=== PATIENT | male | born 1960 | race Caucasian/White ===

== ENCOUNTER 2017-09-12 19:03 | Emergency (ER) | payer MEDICAID ==
[~2017-09-12] VITALS: Ht 180.3 cm; Wt 105.0 kg
[2017-09-12 19:09] VITALS: BP 131/82
== END 2017-09-13 01:00 | disposition left against medical advice (07) ==
LOC: ER 21:09
DX: M25.561 Pain in right knee (principal); Z53.21 Procedure and treatment not carried out due to patient leaving prior to being seen by health care provider

== ENCOUNTER 2017-12-29 07:12 | Emergency (ER) | payer MEDICAID | END 2017-12-29 07:47 | disposition left against medical advice (07) | LOC: ER 07:12 | DX: M79.609 Pain in unspecified limb (principal); Z53.21 Procedure and treatment not carried out due to patient leaving prior to being seen by health care provider ==

== ENCOUNTER 2020-11-06 15:25 | Emergency (ER) | payer MEDICAID ==
[~2020-11-06] VITALS: Ht 175.3 cm; Wt 91.0 kg
[2020-11-06] MEDS ORDERED: ASPIRIN 81MG TABLET PO ONE (17:00)
[2020-11-06 17:51] LABS: BASOPHILS % 0.9 % (0.0-2.0); EOSINOPHILS % 1.4 % (0.0-5.0); HEMATOCRIT. 41.9 % (42.0-52.0); HEMOGLOBIN. 14.3 g/dL (14.0-18.0); LYMPHOCYTES % 21.9 % (20.0-50.0); MEAN CORPUSCULAR HEMOGLOBIN 28.4 pg (28.0-32.0); MEAN CORPUSCULAR VOLUME 83.2 fL (80.0-94.0); MONOCYTES % 8.2 % (2.0-8.0); NEUTROPHILS % 67.6 % (40.0-76.0); PLATELET 320 x1000/uL (130-400); RED BLOOD CELL COUNT 5.03 mill/uL (4.7-6.1); RED CELL DISTRIBUTION WIDTH 14.4 % (11.6-14.6)
[2020-11-06 18:01] LABS: CHLORIDE 112 mEq/L (98-107)
[2020-11-06 18:06] LABS: ETHANOL BLOOD < 10 mg/dL
[2020-11-06 22:10] LABS: *AMPHETAMINES SCREEN URINE PRESUMTIVE POSITIVE (NEGATIVE); *BARBITURATES SCREEN URINE NEGATIVE (NEGATIVE)
[2020-11-06 22:11] LABS: *BENZODIAZEPINES SCREEN URINE NEGATIVE (NEGATIVE); *COCAINE SCREEN URINE NEGATIVE (NEGATIVE); CANNABINOID URINE SCREEN NEGATIVE (NEGATIVE); METHADONE URINE SCREEN NEGATIVE (NEGATIVE); OPIATES URINE SCREEN NEGATIVE (NEGATIVE); PHENCYCLIDINE URINE SCREEN NEGATIVE (NEGATIVE)
[2020-11-06] MEDS ORDERED: IOHEXOL-300 100 ML BOTTLE ONE (22:41)
[2020-11-06] MEDS ORDERED: NICARDIPINE 40MG/200ML PREMIX 200 ML IV PRN (23:30)
[2020-11-06] MEDS ORDERED: ESMOLOL 2500MG PREMIX 250 ML IV ONE ×2 (23:30→23:45)
[2020-11-07] MEDS ORDERED: ESMOLOL 2500MG PREMIX 250 ML IV PRN (02:15)
[2020-11-07 03:00] VITALS: BP 113/66
== END 2020-11-07 03:10 | disposition short-term general hospital (02) ==
LOC: ER 15:25 → CANBEDREQ 11-07 07:05
DX: I71.00 Dissection of unspecified site of aorta (principal); E87.6 Hypokalemia; Z20.822 Contact with and (suspected) exposure to COVID-19; E83.51 Hypocalcemia; R00.0 Tachycardia, unspecified; F15.10 Other stimulant abuse, uncomplicated
CPT/HCPCS: 36415; 71045; 71275; 80053; 80305; 80320; 83880; 84484; 85025; 87426; 93005; 96365; 96368; 99285; J3490; Q9967; Z7610; G0480

== ENCOUNTER 2024-03-18 11:05 | Emergency (ER) | payer MEDICAID ==
[~2024-03-18] VITALS: Ht 180.3 cm; Wt 105.0 kg
[2024-03-18 11:10] VITALS: BP 140/71; PULSE 74; RESP 18; O2SAT 97
[2024-03-18] MEDS ORDERED: KETOROLAC 30MG/ML VIAL IM ONE (11:45)
[2024-03-18 12:00] VITALS: TEMP 98.6
[2024-03-18] MEDS: ACETAMINOPHEN 325MG TABLET PO ONE (12:00)
[2024-03-18] MEDS ORDERED: ACET-2708 MT (14:55)
== END 2024-03-18 15:42 | disposition home or self-care (01) ==
LOC: ER 11:05
DX: S42.295A Other nondisplaced fracture of upper end of left humerus, initial encounter for closed fracture (principal); F15.90 Other stimulant use, unspecified, uncomplicated; V89.9XXA Person injured in unspecified vehicle accident, initial encounter; Y93.89 Activity, other specified; Y92.89 Other specified places as the place of occurrence of the external cause; Y99.8 Other external cause status
CPT/HCPCS: 73030; 73060; 99284

== ENCOUNTER 2025-04-23 19:26 | Emergency (ER) | payer MEDICARE, MEDICAID ==
[~2025-04-23] VITALS: Ht 175.3 cm; Wt 85.0 kg
[~2025-04-23 19:26] MED LIST: ACET-2708 MT
[2025-04-23] MEDS ORDERED: MORPHINE SULFATE 4 MG/ML INJ (FOR IV/IM USE) IV ONE (19:45)
[2025-04-23] MEDS ORDERED: ONDANSETRON HCL 4MG/2ML INJ IV ONE (19:45)
[2025-04-23 20:00] VITALS: TEMP 36.8; O2SAT 97
[2025-04-23] MEDS: AMPICILLIN SOD/SULBACTAM NA 3 G in SODIUM CHLORIDE 0.9% 100 ML IV ONE (22:04)
[2025-04-23] MEDS: ONDANSETRON HCL 4MG/2ML INJ IV SCH (22:04)
[2025-04-23 22:05] VITALS: BP 127/79; PULSE 85; RESP 18
[2025-04-23] MEDS: MORPHINE SULFATE 4 MG/ML INJ (FOR IV/IM USE) IV SCH (22:05)
[2025-04-23] MEDS ORDERED: AMOX1TAB16 MT (22:08)
[2025-04-23] MEDS ORDERED: DOXY100C5 MT (22:08)
[2025-04-23] MEDS ORDERED: IBUP-2029 MT (22:08)
[2025-04-23] MEDS: NEOMYCIN/BACITRACIN/POLYMYXIN OINT 14GM TOP ONE (22:43)
== END 2025-04-23 23:13 | disposition home or self-care (01) ==
LOC: ER 19:26
DX: S51.852A Open bite of left forearm, initial encounter (principal); F15.90 Other stimulant use, unspecified, uncomplicated; Z79.899 Other long term (current) drug therapy; W54.0XXA Bitten by dog, initial encounter; Y93.01 Activity, walking, marching and hiking; Y92.89 Other specified places as the place of occurrence of the external cause; Y99.8 Other external cause status
CPT/HCPCS: 99284; 96365; 96375; 73090; J0295; J2405; J2270; J7050